=== PATIENT | female | born 1995 | race Two or more races ===

== ENCOUNTER 2016-11-26 10:54 | Emergency (ER) | payer OTHER ==
[~2016-11-26] VITALS: Ht 157.5 cm; Wt 74.1 kg
[2016-11-26 10:58] VITALS: BP 122/80
[2016-11-26] MEDS ORDERED: DIAZEPAM 5 MG TABLET ONE (11:33)
[2016-11-26] MEDS ORDERED: KETOROLAC 30 MG/1 ML ONE (11:34)
[2016-11-26] MEDS ORDERED: OXYcodone/APAP 5/325MG TABLET ONE (11:34)
[2016-11-26] MEDS ORDERED: KETOROLAC 30 MG/1 ML IM ONE (12:00)
[2016-11-26] MEDS ORDERED: DIAZEPAM 5 MG TABLET PO ONE (12:00)
[2016-11-26] MEDS ORDERED: OXYcodone/APAP 5/325MG TABLET PO ONE (12:00)
== END 2016-11-26 13:28 | disposition home or self-care (01) ==
LOC: ED 13:17
DX: S16.1XXA Strain of muscle, fascia and tendon at neck level, initial encounter (principal); S39.012A Strain of muscle, fascia and tendon of lower back, initial encounter; V89.2XXA Person injured in unspecified motor-vehicle accident, traffic, initial encounter; Y93.89 Activity, other specified; Y92.410 Unspecified street and highway as the place of occurrence of the external cause; Y99.9 Unspecified external cause status
CPT/HCPCS: 72020; 72050; 72110; 96372; 99284; J1885